=== PATIENT | female | born 1980 | race Caucasian/White ===

== ENCOUNTER 2025-07-16 10:33 | Outpatient (AMB) | payer OTHER, SELFPAY ==
--- NOTE | 2025-07-16 11:18 | AM.OFFWIN_ITS ---
Intake Vital Signs 07/16/25 11:19 Height 5 ft 5 in Weight 128 lb BMI 21.3 BP 110/68 Blood Pressure Location Lt brachial Position Sitting Pulse 66 Pulse Source Pulse Oximeter Temp 98.2 F Temp Source Oral Pulse Oximetry (%) 97 Oxygen Delivery Method Room Air Intake Visit Reasons: EP Cough Intake Note: EP complains of cough (productive-dark yellow color), difficult breath, chest congestion and fatigue for the last 12 days. Allergies codeine (From [employer] with Codeine) Allergy (Mild, Verified 07/16/25 11:25) skin rash Medication List - Last Reconciled 07/16/25 by Senia Aguilar NP albuterol sulfate 90 mcg/actuation 2 puffs inhalation Q4H PRN azithromycin 500 mg PO DAILY 3 days benzonatate 200 mg PO TID PRN loratadine (Claritin) 10 mg PO DAILY lorazepam 0.5 mg PO DAILY PRN Do you need a note to return to daycare/school/sports/work: Yes HPI HPI Comments History of Present Illness Details 44 y/o Female patient who presents to [facility] walk in clinic with c/o Dry to productive cough for 12 days. She was seen by her PCP last week , and was put on Prednisone Oral 20 mg for 5 days. Reports no improvement so she went back to see PCP this past Sunday and she was told to take OTC medications and to keep monitoring her symptoms at home. She presents today with persistent cough, fatigue, wheezing, chest congestion and pressure. She does have h/o Exercise induced Asthma as a child, and she has not had any Flare -ups since then. Denies Fevers, chills, Nausea and vomiting. [facility] Medical History (Updated 07/16/25 @ 12:04 by Senia Aguilar NP) Cough Physical Exam Vital Signs: Last Vital Signs Temp 98.2 F 07/16/25 11:19 Pulse 66 07/16/25 11:19 BP 110/68 07/16/25 11:19 Pulse Ox 97 07/16/25 11:19 Oxygen Delivery Method Room Air 07/16/25 11:19 BMI result Body Mass Index 21.3 Const General: no acute distress Nutritional Appearance: well nourished Orientation/consciousness: patient oriented x3 HEENT Head: Yes normocephalic Ears: external ears normal and TM abnormal with fluid behind the TM bilateral General nose exam: Normal external nose present Face and sinus: Yes sinuses nontender Mouth: moist mucous membranes Throat: Yes uvula midline Resp Effort & Inspection: normal respiratory effort and Actively coughing Quality: dry Auscultation: clear to auscultation bilaterally, no crackles, no rales, no rhonchi and no wheezes Cardio Heart sounds: S1 normal heart sound present and S2 normal heart sound present Neuro General: patient oriented x3 Assessment & Plan Assessment & Plan (1) Cough: Code(s): R05.9 - Cough, unspecified Qualifiers: Cough type: subacute Qualified Code(s): R05.2 - Subacute cough Plan: Ordered Chest Xray Ordered Z-pack for 3 days. Ordered SARs. Orders: Orders XR chest 2V Today R05.9 - Cough, unspecified SARS-CoV2/FLU/RSV Today J06.9 - Acute upper respiratory infection, unspecified, R05.2 - Subacute cough Medications: New azithromycin 500 mg PO DAILY 3 tabs 0RF 3 days R05.2 - Subacute cough loratadine (Claritin) 10 mg PO DAILY 30 tabs 0RF R05.2 - Subacute cough Coding Level of Care Code New Pt Level 4 (31723) Diagnoses Subacute cough R05.2 Cough type: subacute Time Spent (min) 20
[2025-07-16 11:19] VITALS: BP 110/68; PULSE 66; TEMP 36.8; O2SAT 97; BMI 21.3
--- OUTSIDE RECORDS SUMMARY | 2025-07-16 12:52 | XMS_ITS | Encounter Summary ---
Author Organization [facility] Address [address] [place] [address] [place] [address] Phone Care Team Providers Care Copy Supervisor Name Role Phone Kristie Fuentes FREIGHT SOLICITOR Primary Care Provider [phone] Kristie Fuentes FREIGHT SOLICITOR Primary Care Provider [phone] Encounter Details Date Type Department Care Team (Late st Contact Info) Description 04/28/2022 Procedure Pass [facility], X-Ray - [facility] [address] [place] [address] Social History Tobacco Use Types Packs/Day Years Used Date Smoking Tobacco: Never Assessed Comments No Sex and Gender Information Value Date Recorded Sex Assigned at Female 12/08/2024 1:01 PM EDT Legal Sex Female 2:37 PM EST Gender Identity Female 12/08/2024 1:01 PM EDT Sexual Orientation Not on file documented as of this encounter Plan of Treatment Not on file documented as of this encounter Visit Diagnoses Not on filedocumented in this encounter Additional Health Concerns Infection Onset Date Last Indicated Resolved Time CoV-Risk 09/11/2022 09/11/2022 09/22/2022 1:22 AM EST CoV-Risk 12/08/2024 12/08/2024 12/19/2024 1:24 AM EDT documented as of this encounter Care Teams Copy Supervisor Relationship Specialty Start Date End Date Kristie Fuentes FREIGHT SOLICITOR PCP - General Family Medicine 04/22/20 12/07/24 Kristie Fuentes NP [address] [place] [address] PCP - General Nurse Practitioner 12/08/24 documented as of this encounter Additional Source Comments The information contained in this document represents components of the legal health record. It is not the complete legal health record.[facility]
--- OUTSIDE RECORDS SUMMARY | 2025-07-16 12:52 | XMS_ITS | Encounter Summary ---
Author Organization [facility] Address [address] [place] [address] [place] [address] Phone Care Team Providers Care Manager Shipping Name Role Phone Kristie Fuentes MOLD CUTTING MACHINE OPERATOR Primary Care Provider [phone] Kristie Fuentes MOLD CUTTING MACHINE OPERATOR Primary Care Provider [phone] Encounter Details Date Type Department Care Team (Latest Contact Info) Description 01/22/2024 Transcribe Orders Virtual Department [address] [place] [address] Leoncio Lopez, DIVYA [address] [place] [address] Right forearm pain (Primary Dx) Social History Tobacco Use Types Packs/Day Years Used Date Smoking Tobacco: Never Smokeless Tobacco: Never Alcohol Use Standard Drinks/Week Comments Yes 0 (1 standard drink = 0.6 oz pur e alcohol) occasional Education Answer Date Recorded Are you interested in more education? Not on al e 01/12/2023 Are you concerned about learning? Not on file 01/12/2023 No 01/12/2023 No 01/12/2023 Digital Access Answer Date Recorded No 02/12/2023 No 02/12/2023 Reliable internet access at home? Not on file 02/12/2023 Device with a working camera? Not on file Intimate Partner Violence Answer Date R ecorded Are you denied basic needs s uch as food, clothing, or medical care? No 09/11/2022 In the past 12 months have y ou been in a relationship with a person who hurts, threatens, or tries to control you? No 09/11/2022 Are you denied basic needs s uch as food, clothing, or medical care? No 09/11/2022 In the past 12 months have y ou been in a relationship with a person who hurts, threatens, or tries to control you? No 09/11/2022 Comments No Sex and Gender Information Value Date Recorded Sex Assigned at Female 12/08/2024 1:01 PM EDT Legal Sex Female 2:37 PM EST Gender Identity Female 12/08/2024 1:01 PM EDT Sexual Orientation Not on file documented as of this encounter Plan of Treatment Not on file documented as of this encounter Visit Diagnoses Diagnosis Right forearm pain- Primary documented in this encounter Additional Health Concerns Infection Onset Date Last Indicated Resolved Time CoV-Risk 12/08/2024 12/08/2024 12/19/2024 1:24 AM EDT documented as of this encounter Care Teams Manager Shipping Relationship Specialty Start Date End Date Kristie Fuentes NP PCP - General Family Medicine 04/22/20 12/07/24 Kristie Fuentes NP [address] [place] [address] PCP - General Nurse Practitioner 12/08/24 documented as of this encounter Additional Source Comments The information contained in this document represents components of the legal health record. It is not the complete legal health record.[facility]
--- OUTSIDE RECORDS SUMMARY | 2025-07-16 12:52 | XMS_ITS | Clinical Summary ---
Author Organization [facility] Address [address] [place] [address] Phone Care Team Providers Care Entry Level Staff Accountant Name Role Phone Kristie Fuentes NP Primary Care Provider [phone] Allergies Active Allergy Reactions Criticality Noted Date Comments Codeine Rash Low 06/13/2022 Medications multivitamin Liqd Take 5 mL by mouth daily. Active cholecalciferol (VITAMIN D3) 400 unit tablet Take 400 Units by mouth daily. Active Social History Tobacco Use Types Packs/Day Years [...] as food, clothing, or medical care? No 12/08/2024 In the past 12 months have y ou been in a relationship with a person who hurts, threatens, or tries to control you? No 12/08/2024 Are you denied basic needs s uch as food, clothing, or medical care? No 12/08/2024 In the past 12 months have y ou been in a relationship with a person who hurts, threatens, or tries to control you? No 12/08/2024 Comments No Sex and Gender Information Value Date Recorded Sex Assigned at Female 12/08/2024 1:01 PM EDT Legal Sex Female 2:37 PM EST Gender Identity Female 12/08/2024 1:01 PM EDT Sexual Orientation Not on file Last Filed Vital Signs Vital Sign Reading Time Taken Comments Blood Pressure 117/82 12/08/2024 6:40 PM EDT Pulse 85 12/08/2024 6:40 PM EDT Temperature 36.7 C (98.1 F) 12/08/2024 6:40 PM EDT Respiratory Rate 13 12/08/2024 6:40 PM EDT Oxygen Saturation 100% 12/08/2024 6:40 PM EDT Inhaled Oxygen Concentration - - Weight 59.9 kg (132 lb) 12/08/2024 1:01 PM EDT Height 157.5 cm (5' 2 ) 12/08/2024 1:01 PM EDT Body Mass Index 24.14 12/08/2024 1:01 PM EDT Plan of Treatment Health Maintenance Due Date Last Done Comments Adult Td,Tdap Booster 1980 DEPRESSION SCREENING 1992 PAP SMEAR 2001 MAMMOGRAM 2020 COVID-19 VACCINE (2 6 season) 2025 10/05/2020, 09/14/2020 HEPATITIS C SCREENING Completed 03/15/2015 HIV ONE-TIME SCREENING (18-6 5 YEARS) Completed 03/15/2015 SMOKING STATUS SCREENING (On ce After 26 Yrs) Completed 08/28/2022 INFLUENZA VACCINE Completed 06/25/2025, 08/02/2020, 05/18/2019 HEPATITIS A VACCINES Aged Out No long er eligible based on patient's age to complete this topic HIB VACCINES Aged Out No longer eligi ble based on patient's age to complete this topic MENINGOCOCCAL VACCINES (ACWY) Aged Out No longer eligible based on patient's age to complete this topic MENINGOCOCCAL VACCINES (B) Aged Out N o longer eligible based on patient's age to complete this topic PNEUMOCOCCAL VACCINES (0-49 years) Aged Out No longer eligible b ased on patient's age to complete this topic Medical Devices Not on file Procedures Procedure Name Priority Date/Time Associated Diagnosis Comments HEPATITIS C ANTIBODY, QUALITATIVE Routine 03/15/2015 9:40 AM EDT from Last 3 Months or Most Recently Relevant to Health Maintenance Results * HCV antibody, qualitative (03/15/2015 9:40 AM EDT) HCV Antibody Negative [facility] Comment: Antibodies to HCV not detected. Does not exclude the possibility of exposure to HCV. 03/15/2015 9:40 AM EDT 03/15/2015 11:06 AM EDT Comment:BLOOD Lopez Nash MD LAB BLOOD ORDERABLES Edited Result - Final [facility] [address] [place] [address] from Last 3 Months or Most Recently Relevant to Health Maintenance Insurance [employer] [place] [address] [address] COMMUNITY CHOICE [facility]ITY CHO[facility] [employer] [employer] [employer] [facility] [place] [place] [address] [place] [address] COMMUNITY CHOICE [facility] COMM[employer]ITY CHOICE Care Teams Entry Level Staff Accountant Relationship Specialty Start Date End Date Kristie Fuentes NP [address] [place] [address] PCP - General Nurse Practitioner 12/08/24 Additional Source Comments The information contained in this document represents components of the legal health record. It is not the complete legal health record.[facility]
--- OUTSIDE RECORDS SUMMARY | 2025-07-16 12:52 | XMS_ITS | Encounter Summary ---
Author Organization [facility] Address [address] [place] [address] [place] [address] Phone Care Team Providers Care Strings Teacher Name Role Phone Ab Wright MD Primary Care Provider [phone] Kristie Fuentes DIAGNOSTICS TECH Primary Care Provider Kristie Fuentes NP Primary Care Provider [phone] Encounter Details Date Type Department Care Team (Late st Contact Info) Description 04/21/2020 Transcribe Orders Virtual Department [address] [place] [address] Kristie Fuentes, DIVYA [address] [place], [place] [id number] Chest pain, unspecified type (Primary Dx) Social History Tobacco Use Types [...] on file documented as of this encounter Results * COVID-19 PCR Order (04/23/2020 9:42 AM EDT) Specimen Source NASOPHARYNGEAL SWAB (DIAGNOSTICS TECH) [facility] COVID Testing Status Sent to [facility] Other 04/23/2020 9:42 AM EDT 04/23/2020 10:58 AM EDT Kristie Fuentes DIAGNOSTICS TECH BODY FLUIDS AND STOOLS ORDER ZACK Final Result [facility] [address] [place] [address] documented in this encounter Visit Diagnoses Diagnosis Chest pain, unspecified type- Primary documented in this encounter Additional Health Concerns Infection Onset Date Last Indicated Resolved Time CoV-Risk 04/21/2020 04/23/2020 05/05/2020 1:24 AM EDT CoV-Risk 09/11/2022 09/11/2022 09/22/2022 1:22 AM EST CoV-Risk 12/08/2024 12/08/2024 12/19/2024 1:24 AM EDT documented as of this encounter Care Teams Strings Teacher Relationship Specialty Start Date End Date Ab Wright MD [address] [place] [address] [email or web address] PCP - General Family Medicine 08/21/14 04/21/20 Kristie Fuentes NP [address] [place] [address] PCP - General Family Medicine 04/22/20 12/07/24 Kristie Fuentes NP [address] [place] [address] PCP - General Nurse Practitioner 12/08/24 documented as of this encounter Additional Source Comments The information contained in this document represents components of the legal health record. It is not the complete legal health record.[facility]
--- OUTSIDE RECORDS SUMMARY | 2025-07-16 12:52 | XMS_ITS | Encounter Summary ---
Author Organization [facility] Address [address] [place] [address] [place] [address] Phone Care Team Providers Care Carpenter Apprentice Name Role Phone Kristie Fuentes FERMENTATION MANAGER Primary Care Provider [phone] Kristie Fuentes FERMENTATION MANAGER Primary Care Provider Encounter Details Date Type Department Care Team (Late st Contact Info) Description 04/28/2022 Procedure Pass [facility], [address] [address] Social History Tobacco Use Types Packs/Day Years [...] documented as of this encounter Care Teams Carpenter Apprentice Relationship Specialty Start Date End Date Kristie Fuentes FERMENTATION MANAGER PCP - General Family Medicine 04/22/20 12/07/24 Kristie Fuentes NP [address] [place] [address] PCP - General Nurse Practitioner 12/08/24 documented as of this encounter Additional Source Comments The information contained in this document represents components of the legal health record. It is not the complete legal health record.[facility]
--- OUTSIDE RECORDS SUMMARY | 2025-07-16 12:52 | XMS_ITS | Encounter Summary ---
Author Organization [facility] Address [address] [place] [address] [place] [address] Phone Care Team Providers Care Private Branch Exchange Service Advisor Name Role Phone Ab Wright MD Primary Care Provider [phone] Kristie Fuentes DIAMOND DRILLER HELPER Primary Care Provider Kristie Fuentes DIAMOND DRILLER HELPER Primary Care Provider [phone] Encounter Details Date Type Department Care Team (Late st Contact Info) Description 04/08/2020 Procedure Pass [address] [address] Social History Tobacco Use Types Packs/Day Years [...] documented as of this encounter Care Teams Private Branch Exchange Service Advisor Relationship Specialty Start Date End Date Ab Wright MD [address] [place] [address] [email or web address] PCP - General Family Medicine 08/21/14 04/21/20 Kristie Fuentes NP [address] [place] [address] PCP - General Family Medicine 04/22/20 12/07/24 Kristie Fuentes NP [address] [place] [address] PCP - General Nurse Practitioner 12/08/24 documented as of this encounter Additional Source Comments The information contained in this document represents components of the legal health record. It is not the complete legal health record.[facility]
--- OUTSIDE RECORDS SUMMARY | 2025-07-16 12:52 | XMS_ITS | Encounter Summary ---
Author Organization [facility] Address [address] [place] [address] [place] [address] Phone Care Team Providers Care Braille Translator Name Role Phone Kristie Fuentes MANGLE OPERATOR GARMENTS Primary Care Provider [phone] Kristie Fuentes MANGLE OPERATOR GARMENTS Primary Care Provider Encounter Details Date Type Department Care Team (Latest Contact Info) Description 07/20/2022 Ancillary Orders [address] [address] Echo Salamanca MD [address] [place] [address] Orthopedics & Sports Medicine, [place] [address] [email or web address] Osteoarthritis of left hip, unspecified osteoarthritis type Social History Tobacco Use Types Packs/Day Years Used Date Smoking Tobacco: Never Smokeless Tobacco: Never Alcohol Use Standard Drinks/Week Comments Yes 0 (1 standard drink = 0.6 oz pur e alcohol) occasional Comments No Sex and Gender Information Value Date Recorded Sex Assigned at Female 12/08/2024 1:01 PM EDT Legal Sex Female 2:37 PM EST Gender Identity Female 12/08/2024 1:01 PM EDT Sexual Orientation Not on file documented as of this encounter Plan of Treatment Not on file documented as of this encounter Visit Diagnoses Diagnosis Osteoarthritis of left hip, unspecified osteoarthritis type documented in this encounter Additional Health Concerns Infection Onset Date Last Indicated Resolved Time CoV-Risk 09/11/2022 09/11/202209/2209/22/2022 1:22 AM EST CoV-Risk 12/08/2024 12/08/2024 12/19/2024 1:24 AM EDT documented as of this encounter Care Teams Braille Translator Relationship Specialty Start Date End Date Kristie Fuentes NP PCP - General Family Medicine 04/22/20 12/07/24 Kristie Fuentes NP [address] [place] [address] PCP - General Nurse Practitioner 12/08/24 documented as of this encounter Additional Source Comments The information contained in this document represents components of the legal health record. It is not the complete legal health record.[facility]
--- OUTSIDE RECORDS SUMMARY | 2025-07-16 12:52 | XMS_ITS | Encounter Summary ---
Author Organization [facility] Address [address] [place] [address] [place] [address] Phone Care Team Providers Care Biomedical Field Service Engineer Name Role Phone Kristie Fuentes COMBINER OPERATOR Primary Care Provider Kristie Fuentes COMBINER OPERATOR Primary Care Provider Encounter Details Date Type Department Care Team (Late st Contact Info) Description 10/01/2020 Transcribe Orders Virtual Department [address] [place] [address] Kristie Fuentes, COMBINER OPERATOR [address] [place], [place] [phone] Exposure to SARS-associated coronavirus (Primary Dx) Social History Tobacco Use Types [...] as of this encounter Visit Diagnoses Diagnosis Exposure to SARS-associated coronavirus- Primary documented in this encounter Additional Health Concerns Infection Onset Date Last Indicated Resolved Time CoV-Risk 09/11/2022 09/11/2022 09/22/2022 1:22 AM EST CoV-Risk 12/08/2024 12/08/2024 12/19/2024 1:24 AM EDT documented as of this encounter Care Teams Biomedical Field Service Engineer Relationship Specialty Start Date End Date Kristie Fuentes NP PCP - General Family Medicine 04/22/20 12/07/24 Kristie Fuentes NP [address] [place] [address] PCP - General Nurse Practitioner 12/08/24 documented as of this encounter Additional Source Comments The information contained in this document represents components of the legal health record. It is not the complete legal health record.[facility]
--- OUTSIDE RECORDS SUMMARY | 2025-07-16 12:52 | XMS_ITS | Encounter Summary ---
Author Organization [facility] Address [address] [place] [address] [place] [address] Phone Care Team Providers Care Prime Minister Name Role Phone Ab Wright MD Primary Care Provider [phone] Kristie Fuentes FUNCTIONAL TESTER Primary Care Provider [phone] Kristie Fuentes FUNCTIONAL TESTER Primary Care Provider Reason for Referral * MRI/CAT Scan - Closed Specialty Diagnoses / Procedures Referred By Geni gallo Referred To Contact Radiology Diagnoses Lumbar radiculopathy Procedures MRI Lumbar Spine Jose Wakefield DO Phone: tel: fax: mailto:[email or web address] Referral ID Status Reason Start Date Expiration Date Visits Re quested Visits Authorized [id number] Closed 04/08/2020 05/07/2020 1 1 Encounter Details Date Type Department Care Team (Latest Contact Info) Description 04/08/2020 Ancillary Orders Virtual Department [address] [place] [address] Jose Wakefield DO [address] [place] [address] [email or web address] Lumbar radiculopathy Social History Tobacco Use Types Packs/Day Years Used Date Smoking Tobacco: Never Assessed Comments Unknown Sex and Gender Information Value Date Recorded Sex Assigned at Female 12/08/2024 1:01 PM EDT Legal Sex Female 2:37 PM EST Gender Identity Female 12/08/2024 1:01 PM EDT Sexual Orientation Not on file documented as of this encounter Plan of Treatment Not on file documented as of this encounter Results * MRI LUMBAR SPINE (BONE) WITH CONTRAST (04/21/2020 4:22 PM EDT) Anatomical Region Laterality Modality L-spine Magnetic Resonan ce 04/21/2020 4:55 PM EDT Impressions 04/21/2020 5:01 PM EDT No explanation for lower back pain and right thigh numbness. POS - [id number] Narrative 04/21/2020 5:01 PM EDT HISTORY: Lower back pain, right thigh numbness. COMPARISON: None TECHNIQUE: Exam performed on a 1.5 Rebeka high-field MRI scanner. Sagittal T1, T2 and STIR, axial T1 and T2 sequences were obtained. FINDINGS: Conus medullaris: Normal. L1-L2: No abnormalities. L2-L3: No abnormalities. L3-L4: No abnormalities. L4-L5: Very mild facet arthropathy and thickening of the ligamentum flavum. No other significant abnormalities. L5-S1: Very mild facet arthropathy. No other significant abnormalities. Soft tissues: Evidence of small cysts or dominant follicles within the right side of the mid pelvis, likely within the ovary. Vertebral bodies: No compression fractures or subluxations. Marrow signal: No suspicious marrow signal abnormalities. Procedure Note Ej Sousa MD - 04/21/2020 HISTORY: Lower back pain, right thigh numbness. COMPARISON: None TECHNIQUE: Exam performed on a 1.5 Rebeka high-field MRI scanner. SagittalT1, T2 and STIR, axial T1 and T2 sequences were obtained. FINDINGS: Conus medullaris: Normal. L1-L2: No abnormalities. L2-L3: No abnormalities. L3-L4: No abnormalities. L4-L5: Very mild facet arthropathy and thickening of the ligamentumflavum. No other significant abnormalities. L5-S1: Very mild facet arthropathy. No other significant abnormalities. Soft tissues: Evidence of small cysts or dominant follicles within theright side of the mid pelvis, likely within the ovary. Vertebral bodies: No compression fractures or subluxations. Marrow signal: No suspicious marrow signal abnormalities. IMPRESSION: No explanation for lower back pain and right thigh numbness. POS - [id number] us Jose Wakefield DO IMG MR XSPECIALTY Final Resu lt documented in this encounter Visit Diagnoses Diagnosis Lumbar radiculopathy Thoracic or lumbosacral neuritis or radiculitis, unspecified Lumbar radiculopathy Thoracic or lumbosacral neuritis or radiculitis, unspecified documented in this encounter Additional Health Concerns Infection Onset Date Last Indicated Resolved Time CoV-Risk 04/21/2020 04/23/2020 05/05/2020 1:24 AM EDT CoV-Risk 09/11/2022 09/11/2022 09/22/2022 1:22 AM EST CoV-Risk 12/08/2024 12/08/2024 12/19/2024 1:24 AM EDT documented as of this encounter Care Teams Prime Minister Relationship Specialty Start Date End Date Ab Wright MD [address] [place] [address] [email or web address] PCP - General Family Medicine 08/21/14 04/21/20 Kristie Fuentes NP [address] [place] [address] PCP - General Family Medicine 04/22/20 12/07/24 Kristie Fuentes NP [address] [place] [address] PCP - General Nurse Practitioner 12/08/24 documented as of this encounter Additional Source Comments The information contained in this document represents components of the legal health record. It is not the complete legal health record.[facility]
--- OUTSIDE RECORDS SUMMARY | 2025-07-16 12:52 | XMS_ITS | Encounter Summary ---
Author Organization [facility] Address [address] [place] [address] [place] [address] Phone Care Team Providers Care Row Boss Hoeing Name Role Phone Kristie Fuentes HATCHERY LABORER Primary Care Provider Kristie Fuentes HATCHERY LABORER Primary Care Provider Encounter Details Date Type Department Care Team (Latest Contact Info) Description 04/19/2022 Transcribe Orders Virtual Department [address] [place] [address] Samuel Jorge MD [address] [place] [address] [email or web address] Pain in left hip (Primary Dx) Social History Tobacco Use Types [...] as of this encounter Visit Diagnoses Diagnosis Pain in left hip- Primary documented in this encounter Additional Health Concerns Infection Onset Date Last Indicated Resolved Time CoV-Risk 09/11/2022 09/11/2022 09/22/2022 1:22 AM EST CoV-Risk 12/08/2024 12/08/2024 12/19/2024 1:24 AM EDT documented as of this encounter Care Teams Row Boss Hoeing Relationship Specialty Start Date End Date Kristie Fuentes NP PCP - General Family Medicine 04/22/20 12/07/24 Kristie Fuentes NP [address] [place] [address] PCP - General Nurse Practitioner 12/08/24 documented as of this encounter Additional Source Comments The information contained in this document represents components of the legal health record. It is not the complete legal health record.[facility]
--- OUTSIDE RECORDS SUMMARY | 2025-07-16 12:52 | XMS_ITS | Encounter Summary ---
Author Organization [facility] Address [address] [place] [address] [place] [address] Phone Care Team Providers Care City Director Name Role Phone Kristie Fuentes OVEN WORKER Primary Care Provider [phone] Kristie Fuentes OVEN WORKER Primary Care Provider [phone] Encounter Details Date Type Department Care Team (Late st Contact Info) Description 01/21/2024 Transcribe Orders Virtual Department [address] [place] [address] Leoncio Lopez, DIVYA [address] [place] [address] Social History Tobacco Use Types Packs/Day Years [...] documented as of this encounter Care Teams City Director Relationship Specialty Start Date End Date Kristie Fuentes NP PCP - General Family Medicine 04/22/20 12/07/24 Kristie Fuentes NP [address] [place] [address] PCP - General Nurse Practitioner 12/08/24 documented as of this encounter Additional Source Comments The information contained in this document represents components of the legal health record. It is not the complete legal health record.[facility]
--- OUTSIDE RECORDS SUMMARY | 2025-07-16 12:52 | XMS_ITS | Encounter Summary ---
Author Organization [facility] Address [address] [place] [address] Phone Care Team Providers Care Inbound Customer Service Representative Name Role Phone Kristie Fuentes MINE ANALYST Primary Care Provider + [phone] Kristie Fuentes MINE ANALYST Primary Care Provider + [phone] Reason for Referral * MRI/CAT Scan - Closed Specialty Diagnoses / Procedures Referred By Contac t Referred To Contact Radiology Diagnoses Pain in left hip Procedures MRI Hip Arthrogram (Left) CHG MRI, LOWER EXTREM W/CONTRAST CHG MRI, LOWER EXTREM CHG MRI, LOWER EXTR, W/O CONTRAST F/U BY CONTRAST CHG MRI LOWER EXTREM JT, W/O CONTRAST CHG MRI, JOINT OF LEG W/CONTRAST CHG MRI, JOINT OF LEG. COMBSamuel Dhaliwal MD Phone: tel: fax: mailto:[email or web address] Referral ID Status Reason Start Date Expiration Date Visits Re quested Visits Authorized [id number] Closed 05/01/2022 05/30/2022 1 1 * - Closed Specialty Diagnoses / Procedures Referred By Contac t Referred To Contact Radiology Diagnoses Pain in left hip Procedures FL Hip Arthrogram (Left) Samuel Jorge MD Phone: tel: fax: [email or web address] Referral ID Status Reason Start Date Expiration Date Visits Re quested Visits Authorized [id number] Closed 04/28/2022 04/28/2023 1 1 Encounter Details Date Type Department Care Team (Latest Contact Info) Description 04/28/2022 Transcribe Orders [facility] Department [address] [place] [address] Samuel Jorge MD [address] [place] [address] [email or web address] Pain in left hip (Primary Dx) Social [...] as of this encounter Results * MRI Hip Arthrogram (Left) (05/25/2022 1:10 PM EDT) Anatomical Region Laterality Modality Hip Left Magnetic Resonan ce 05/25/2022 5:59 PM EDT Impressions 05/25/2022 6:05 PM EDT Very small tear at the anterosuperior chondrolabral junction. Narrative 05/25/2022 6:05 PM EDT MRI HIP ARTHROGRAM (LEFT) TECHNIQUE: Multi-sequence, multi-planar MRI arthrogram of the hip, after administration of contrast. COMPARISON: FL HIP ARTHROGRAM (LEFT) 09:52:45.000 FINDINGS: ENTIRE PELVIS SCREENING: No fracture, sacroiliitis, or focal bone lesion. No intrapelvic soft tissue abnormality. DEDICATED HIP: Bone: No fracture or osteonecrosis. Joint: There is a very small tear at the anterosuperior chondrolabral junction (7:11). No focal chondral defect or subchondral edema. No synovitis. Tendons: Gluteus minimus, gluteus medius, iliopsoas, rectus femoris, and proximal hamstring tendons are intact. Soft Tissues: No soft tissue mass. No bursal collection. Procedure Note Geeta Bucio MD - 05/25/2022 MRI HIP ARTHROGRAM (LEFT) TECHNIQUE: Multi-sequence, multi-planar MRI arthrogram of the hip, afteradministration of contrast. COMPARISON: FL HIP ARTHROGRAM (LEFT) 09:52:45.000 FINDINGS: ENTIRE PELVIS SCREENING: No fracture, sacroiliitis, or focal bone lesion.No intrapelvic soft tissue abnormality. DEDICATED HIP: Bone: No fracture or osteonecrosis. Joint: There is a very small tear at the anterosuperior chondrolabraljunction (7:11). No focal chondral defect or subchondral edema. Nosynovitis. Tendons: Gluteus minimus, gluteus medius, iliopsoas, rectus femoris, andproximal hamstring tendons are intact. Soft Tissues: No soft tissue mass. No bursal collection. IMPRESSION: Very small tear at the anterosuperior chondrolabral junction. us Sameul Jorge MD IMG MR EXTREMITY Final Resul t * FL Hip Arthrogram (Left) (05/25/2022 10:30 AM EDT) Anatomical Region Laterality Modality Hip Left Computed Radiogr aphy 05/25/2022 12:0 6 PM EDT Impressions 05/25/2022 12:15 PM EDT Apparently successful intra-articular administration of contrast. MR arthrography is pending, to be reported separately. FLUOROSCOPY TIME: min. 46 sec; 1 IMAGES/FRAMES POS - [id number] Narrative 05/25/2022 12:15 PM EDT COMPARISON: None FINDINGS: An AP customer relations specialist view reveals no acute bony abnormality. Once informed consent was obtained and the appropriate side of intervention confirmed by the patient and radiologist the overlying skin and subcutaneous tissues were infiltrated with a lidocaine solution. Utilizing sterile technique a spinal needle was then percutaneously inserted via an anterior approach and once an intra-articular location to the needle tip was confirmed via injection of small amount of radiographic contrast, approximately 10 cc of a dilute gadolinium mixture were instilled. Following removal of the needle the patient was sent to the MR suite for further imaging. She tolerated the procedure well, without immediate complications encountered. Procedure Note Leoncio Smith MD - 05/25/2022 COMPARISON: None FINDINGS: An AP customer relations specialist view reveals no acute bony abnormality. Once informed consentwas obtained and the appropriate side of intervention confirmed by thepatient and radiologist the overlying skin and subcutaneous tissues wereinfiltrated with a lidocaine solution. Utilizing sterile technique aspinal needle was then percutaneously inserted via an anterior approachand once an intra-articular location to the needle tip was confirmed viainjection of small amount of radiographic contrast, approximately 10 cc ofa dilute gadolinium mixture were instilled. Following removal of theneedle the patient was sent to the MR suite for further imaging. Shetolerated the procedure well, without immediate complicationsencountered. IMPRESSION: Apparently successful intra-articular administration of contrast. MRarthrography is pending, to be reported separately. FLUOROSCOPY TIME: min. 46 sec; 1 IMAGES/FRAMES POS - [id number] Samuel Jorge MD IM IR MSK Final Result documented in this encounter Visit Diagnoses Diagnosis Pain in left hip- Primary Pain in left hip Pain in left hip documented in this encounter Additional Health Concerns Infection Onset Date Last Indicated Resolved Time CoV-Risk 09/11/2022 09/11/2022 09/22/2022 1:22 AM EST CoV-Risk 12/08/2024 12/08/2024 12/19/2024 1:24 AM EDT documented as of this encounter Care Teams Inbound Customer Service Representative Relationship Specialty Start Date End Date Kristie Fuentes NP PCP - General Family Medicine 04/22/20 12/07/24 Kristie Fuentes NP [address] [place] [address] PCP - General Nurse Practitioner 12/08/24 documented as of this encounter Additional Source Comments The information contained in this document represents components of the legal health record. It is not the complete legal health record.[facility]
--- OUTSIDE RECORDS SUMMARY | 2025-07-16 12:52 | XMS_ITS | Encounter Summary ---
Author Organization [facility] Address [address] [place] [address] [place] [address] Phone Care Team Providers Care Appliance Installer Name Role Phone Kristie Fuentes HOT DIP GALVANIZER Primary Care Provider [phone] Kristie Fuentes HOT DIP GALVANIZER Primary Care Provider [phone] Encounter Details Date Type Department Care Team (Late st Contact Info) Description 07/20/2022 Ancillary Orders [address] [address] Echo Salamanca MD [address] [place] [address] Orthopedics & Sports Medicine, [place] [address] [email or web address] Left hip pain Social History Tobacco Use Types Packs/Day Years [...] as of this encounter Plan of Treatment Pending Results Name Type Priority Associated Diagnoses Date /Time FL Guidance Needle Placement Non-Spine Imaging Routine Left hip pain 07/25/2022 8:34 AM EST Scheduled Orders Name Type Priority Associated Diagnoses Orde r Schedule FL Guidance Needle Placement Non-Spine Imaging Routine Left hip pain 1 Occurrences starting 07/20/2022 until 10/20/2022 documented as of this encounter Visit Diagnoses Diagnosis Left hip pain Pain in joint, pelvic region and thigh documented in this encounter Additional Health Concerns Infection Onset Date Last Indicated Resolved Time CoV-Risk 09/11/2022 09/11/2022 09/22/2022 1:22 AM EST CoV-Risk 12/08/2024 12/08/2024 12/19/2024 1:24 AM EDT documented as of this encounter Care Teams Appliance Installer Relationship Specialty Start Date End Date Kristie Fuentes NP PCP - General Family Medicine 04/22/20 12/07/24 Kristie Fuentes NP [address] [place] [address] PCP - General Nurse Practitioner 12/08/24 documented as of this encounter Additional Source Comments The information contained in this document represents components of the legal health record. It is not the complete legal health record.[facility]
--- OUTSIDE RECORDS SUMMARY | 2025-07-16 12:53 | XMS_ITS | Encounter Summary ---
Author Organization [facility] Address [address] [place] [address] [place] [address] Phone Care Team Providers Care Feather Curling Machine Operator Name Role Phone Kristie Fuentes BEADER TENDER Primary Care Provider [phone] Kristie Fuentes BEADER TENDER Primary Care Provider Encounter Details Date Type Department Care Team (Late st Contact Info) Description 07/20/2022 Ancillary Orders [facility] Orthopedics & Sports Medicine [address] [place] [address] Echo Salamanca MD [address] [place] [address] Orthopedics & Sports Medicine, [place] [address] [email or web address] Social History Tobacco Use Types Packs/Day Years [...] documented as of this encounter Care Teams Feather Curling Machine Operator Relationship Specialty Start Date End Date Kristie Fuentes NP PCP - General Family Medicine 04/22/20 12/07/24 Kristie Fuentes NP [address] [place] [address] PCP - General Nurse Practitioner 12/08/24 documented as of this encounter Additional Source Comments The information contained in this document represents components of the legal health record. It is not the complete legal health record.[facility]
== END 2025-07-16 12:02 | disposition home or self-care (01) ==
PROVIDERS: Visit Provider Nurse Practitioner Family
DX: R05.2 Subacute cough (principal)

== ENCOUNTER 2025-07-16 10:33 | Outpatient (REF) | payer OTHER, SELFPAY ==
--- NOTE | ~2025-07-16 | XR_ITS ---
EXAMINATION: XR CHEST CLINICAL INFORMATION: R05.9 - Cough, unspecified COMPARISON: None available. TECHNIQUE: PA and lateral FINDINGS: Hyperinflation No consolidation, pleural effusion or pneumothorax. Cardiomediastinal silhouette is consistent. She curvature of the spine. XR/XR chest 2V IMPRESSION: Hyperinflated lungs without acute airspace disease. Electronically signed by: Tay Garza MD 07/16/2025 12:30 PM EDT
== END 2025-07-16 10:34 | disposition home or self-care (01) ==
LOC: HO.HMGCX 10:33
PROVIDERS: Visit Provider Nurse Practitioner Family
DX: R05.2 Subacute cough (principal); J06.9 Acute upper respiratory infection, unspecified; Z79.899 Other long term (current) drug therapy
CPT/HCPCS: 71046

== ENCOUNTER 2025-07-16 12:05 | Outpatient (REF) | payer OTHER, SELFPAY ==
[2025-07-16 16:10] LABS: Resp Syncy Virus RNA Qual PCR NEGATIVE (Negative); SARS COV2 PCR INHOUSE NEGATIVE (Negative)
== END 2025-07-16 12:06 | disposition home or self-care (01) ==
LOC: HO.LAB 12:05
PROVIDERS: Visit Provider Nurse Practitioner Family
DX: R05.2 Subacute cough (principal); J06.9 Acute upper respiratory infection, unspecified
CPT/HCPCS: 87637

== ENCOUNTER → 2025-07-16 12:08 | Outpatient (BNV) | payer OTHER, SELFPAY | PROVIDERS: Visit Provider Radiology Diagnostic Radiology | DX: R05.9 Cough, unspecified (principal) | CPT/HCPCS: 71046 ==